=== PATIENT | male | born 1950 | race Caucasian/White ===

== ENCOUNTER 2017-03-25 12:00 | Day surgery (SDC) | payer MEDICARE ==
[2017-01-28 14:25] VITALS: BMI 29.7
[2017-03-25] MEDS ORDERED: DEXAMETHASONE SOD PHOSPHATE/PF 10 MG/ML SDV ONE (14:41)
[2017-03-25] MEDS ORDERED: BUPIVACAINE HCL/PF (5 MG/ML) 30 ML VIAL IJ ONE (14:41)
[2017-03-25] MEDS ORDERED: MIDAZOLAM HCL 2 MG/2 ML SINGLE DOSE VIAL ONE (14:41)
[2017-03-25] MEDS ORDERED: SUCCINYLCHOLINE CHLORIDE 200 MG/10 ML VIAL ONE (14:53)
[2017-03-25] MEDS ORDERED: PROPOFOL 20 ML ONE (14:53)
[2017-03-25] MEDS ORDERED: BUPIVACAINE HCL/PF 2.5 MG/ML - 30 ML VIAL IJ ONE (15:03)
--- NOTE | 2017-03-25 15:09 | HP ---
[facility] - Chief Complaint Chief Complaint: right ankle pain - Past Medical History Allergies/Adverse Reactions: Allergies Allergy/AdvReac Type Severity Reaction Status Date / Time No Known Drug Allergies Allergy Verified 01/28/17 14:16 - Current Medications Current Medications: Home Medications Medication Instructions Recorded Silodosin [Rapaflo] 4 mg PO HS 06/11/14 Esomeprazole Magnesium [Nexium 20 mg PO DAILY 01/28/17 24Hr] Ibuprofen 800 mg PO DAILY 01/28/17 Satellite Physical Exam - Physical Examination Vital Signs: Vital Signs Period Temp Pulse Resp BP Sys/Che Pulse Ox Last 24 Hr 98.4 F 60 18 120/76 95 Extremities: Other (+ henry sign, gap in achilles present) [facility] Impression/Plan - Impression/Plan Impression: right achilles tear Operative Procedure: right achilles repair Date to be Performed: 03/25/17
--- NOTE | 2017-03-25 15:11 | OP ---
Operative Note - Note: Operative Date: 03/25/17 Pre-Operative Diagnosis: right achilles tendon rupture Operation: right achilles tendon repair Post-Operative Diagnosis: Same as Pre-op Surgeon: Josep Gallardo Estimated Blood Loss (mls): 0 Operative Report Dictated: Yes
[2017-03-25] MEDS ORDERED: ceFAZolin SODIUM 1 GM VIAL ONE (15:36)
[2017-03-25] MEDS ORDERED: ONDANSETRON 4 MG/2 ML VIAL IVPUSH PRN (16:21)
[2017-03-25] MEDS ORDERED: oxyCODONE HCL 5 MG TABLET PO PRN ×2 (16:21→20:32)
[2017-03-25] MEDS ORDERED: LACTATED RINGERS SOLUTION 1,000 ML IV SCH (16:30)
[2017-03-25] MEDS ORDERED: TAMSULOSIN HCL 0.4 MG CAP.ER.24H (FP) PO SCH (22:00)
[2017-03-25 22:59] VITALS: PULSE 68
[2017-03-26 06:50] VITALS: BP 120/68; TEMP 98.4
[2017-03-26] MEDS ORDERED: PANTOPRAZOLE 20 MG TABLET (FP) PO SCH (10:00)
--- NOTE | 2017-03-29 11:08 | OP ---
DATE OF OPERATION: 03/25/2017 PREOPERATIVE DIAGNOSIS: Right Achilles tendon rupture. POSTOPERATIVE DIAGNOSIS: Right Achilles tendon rupture. PROCEDURE: Right Achilles tendon repair. SURGICAL ATTENDING: Josep Gallardo MD ANESTHESIA: Spinal and regional. CLOSURE: No. 2 FiberWire for Achilles, 2-0 Vicryl subcuticular, and quintin for skin. ESTIMATED BLOOD LOSS: Negligible. COMPLICATIONS: None. CONDITION: To Recovery in stable condition. DESCRIPTION OF OPERATIVE PROCEDURE: The patient was taken to the operating room on March 25, 2017. Regional and spinal anesthesia was administered by the anesthesiologist. IV Kefzol administered prophylactically prior to the case. Patient was placed in the prone position with all prominences well padded. The right lower extremity was prepped and draped in the usual sterile fashion. An 8-cm curved, longitudinal incision was centered over the gap, and the Achilles tendon was incised. Hemostasis was achieved with Bovie cautery. Sharp dissection was carried down full thickness to the rupture. The 2 ends were mobilized. A fasciotomy was made at the base to allow bleeding tissue to help facilitate healing postoperatively. Some of the scar tissue and primitive healing at the rupture site was debrided. Two No. 2 FiberWire sutures in a Krackow/baseball fashion were weaved in the distal stump, and then, two more were done in the proximal stump. The ankle was placed in a , and the 2 ends were sutured one to the other, achieving excellent end-to-end repair. The incision was then copiously irrigated. The subcutaneous was then closed using 2-0 Vicryl, quintin for the skin. A sterile pressure dressing was applied, followed by an splint. The patient was awakened from anesthesia and transferred to Recovery in stable condition. No complications. Estimated blood loss: Negligible. Heath [id number]
== END 2017-03-26 09:30 | disposition home or self-care (01) ==
LOC: FASU 12:00 → FM/S 19:55 → FASU 03-26 09:30
PROVIDERS: ATTEND Orthopaedic Surgery
PROC: 0LQN0ZZ Repair Right Lower Leg Tendon, Open Approach (ICD-10-PCS; principal; 2017-03-25 15:43)
DX: S86.011A Strain of right Achilles tendon, initial encounter (principal); X58.XXXA Exposure to other specified factors, initial encounter; Y93.89 Activity, other specified; Y92.89 Other specified places as the place of occurrence of the external cause

== ENCOUNTER 2018-08-03 01:14 | Emergency (ER) | payer OTHER ==
[2018-08-03 01:54] VITALS: TEMP 98.1; BMI 24.4
[2018-08-03] MEDS ORDERED: SODIUM CHLORIDE 1,000 ML IV STA (02:23)
--- NOTE | 2018-08-03 02:25 | PDOC ---
Attending Attestation - Resident Resident Name: Jigar Alvarez - ED Attending Attestation I have performed the following: I have examined & evaluated the patient, The case was reviewed & discussed with the resident, I agree w/resident's findings & plan - HPI HPI: 08/03/18 02:50 67-year-old male with left-sided chest pain, wheezing and cough - Physicial Exam PE: 08/03/18 02:50 GENERAL: Awake, in no acute distress HEAD: No signs of trauma EYES: ENT:clear without exudates. Moist mucosa NECK: Normal ROM, LUNGS:. Wheezing with prolonged expiratory phase and diminished air movement bilaterally HEART: Regular rate and rhythm, ABDOMEN: Soft, nondistended CHEST WALL: BACK: No midline tenderness. EXTREMITIES:. No erythema, or tenderness NEUROLOGICAL: Alert, SKIN: Warm, Dry - Medical Decision Making 08/03/18 02:51 67-year-old male with wheezing and left-sided chest pain Patient also endorses history of prostate cancer Plan for bronchodilators, steroids and CTA as well as cardiac enzymes Disposition pending reevaluation
--- NOTE | 2018-08-03 02:40 | PDOC ---
History of Present Illness - General Chief Complaint: Cold Symptoms Stated Complaint: COUGH/CHEST PAIN Time Seen by Provider: 08/03/18 02:18 History Source: Patient Exam Limitations: No Limitations - History of Present Illness Initial Comments: 67 yo M w a hx of prostate cancer 10 years ago presents to the ER with left sided chest pain since this morning. The patient states the pain is on the left side of his chest and rates the pain as 8/10. He describes the pain as a sharp needle and a squeezing pressure like sensations. The pain began this morning and has been constant since. The pain does not radiate up his neck, to his back , or to either of his arms. He denies associated nausea, vomiting, or diaphoresis. The patient states he has been coughing alot recently bc he was diagnosed with PNA by Dr. Bee who gave him amoxicillin and a penicillin injection. The patient states his chest pain is much worse when he coughs. He also states the pain is worse when he takes a deep breath. He denies recent travel, personal or family hx of blood clots, denies hormone usage, denies hemoptysis. PCP: Rashid Bee PSH: Achilles repair, Inguinal hernia surgery Social Hx: Denies using alcohol, cigarettes, or other substance usage. Allergies: NKA, NKDA Past History - Past Medical History Allergies/Adverse Reactions: Allergies Allergy/AdvReac Type Severity Reaction Status Date / Time No Known Drug Allergies Allergy Verified 08/03/18 01:54 Home Medications: Ambulatory Orders Silodosin [Rapaflo] 4 mg PO HS 06/11/14 Esomeprazole Magnesium [Nexium 24Hr] 20 mg PO DAILY 01/28/17 Ibuprofen 800 mg PO DAILY 01/28/17 Oxycodone HCl/Acetaminophen [Percocet 5-325 mg Tablet -] 1 - 2 tab PO Q6H #60 tab MDD 6 03/25/17 Anemia: No Asthma: No Cancer: Yes (PROSTATE CA 2007) Cardiac Disorders: No CVA: No COPD: No CHF: No Dementia: No Diabetes: No GI Disorders: Yes (REFLUX) Disorders: No HTN: No Hypercholesterolemia: No Liver Disease: No Seizures: No Thyroid Disease: No - Surgical History Abdominal Surgery: No Appendectomy: No Cardiac Surgery: No Cholecystectomy: No Lung Surgery: No Neurologic Surgery: No Orthopedic Surgery: Yes (RIGHT KNEE 2003, laminectomy?) - Suicide/Smoking/Psychosocial Hx Smoking History: Former smoker Have you smoked in the past 12 months: No Information on smoking cessation initiated: No Hx Alcohol Use: No Drug/Substance Use Hx: No Substance Use Type: None Hx Substance Use Treatment: No Review of Systems - Review of Systems Able to Perform ROS?: Yes Comments:: CONSTITUTIONAL: Absent: fever, no chills, no fatigue EYES: Absent: visual changes ENT: Absent: ear pain, no sore throat CARDIOVASCULAR: Present: Chest pain Absent: no palpitations RESPIRATORY: Present: cough, SOB GI: Absent: abdominal pain, no nausea, no vomiting, no constipation, no diarrhea GENITOURINARY: Absent: dysuria, no frequency, no hematuria MUSKULOSKELETAL: Absent: back pain, no arthralgia, no myalgia SKIN: Absent: rash NEURO: Absent: headache *Physical Exam - Vital Signs Last Vital Signs Temp Pulse Resp BP Pulse Ox 98.1 F 74 18 124/76 96 08/03/18 01:14 08/03/18 01:14 08/03/18 01:14 08/03/18 01:14 08/03/18 01:14 - Physical Exam Comments: GENERAL: Well-appearing, well-nourished. No apparent distress. HEENT: Normocephalic, atraumatic. PERRL, EOM intact. CARDIOVASCULAR: Normal S1, S2. Regular rate and rhythm. PULMONARY: b/l expiratory wheezing ABDOMEN: Soft, non-distended, non-tender. EXTREMITIES: Normal ROM in all four extremities. No gross deformities. SKIN: Warm, dry. No rash NEUROLOGICAL: No focal neurological deficits. ED Treatment Course - LABORATORY CBC & Chemistry Diagram: 08/03/18 02:43 08/03/18 02:43 - RADIOLOGY Radiology Studies Ordered: Category Date Time Status CHEST PA & LAT [RAD] Stat Radiology 08/03/18 02:23 Ordered Medical Decision Making - Medical Decision Making 67 yo M w a hx of prostate cancer 10 years ago presents to the ER with left sided chest pain since this morning. The patient states the pain is on the left side of his chest and rates the pain as 8/10. He describes the pain as a sharp needle and a squeezing pressure like sensations. The pain began this morning and has been constant since. The pain does not radiate up his neck, to his back , or to either of his arms. He denies associated nausea, vomiting, or diaphoresis. The patient states he has been coughing alot recently bc he was diagnosed with PNA by Dr. Bee who gave him amoxicillin and a penicillin injection. The patient states his chest pain is much worse when he coughs. He also states the pain is worse when he takes a deep breath. He denies recent travel, personal or family hx of blood clots, denies hormone usage, denies hemoptysis. Vital Signs Temp Pulse Resp BP Pulse Ox 98.1 F 74 18 124/76 96 08/03/18 01:14 08/03/18 01:14 08/03/18 01:14 08/03/18 01:14 08/03/18 01:14 DDx IBNLT: ACS/KS, Arrhythmia, angina, PNA, PE, COPD/asthma/reactive airway disease, bronchitis Plan: Labs, ekg, CTA pe, duonebs, steroids, IV hydration, analgesia, re-assess. Labs unremarkable. EKG ns no St elevations, depressions or t wave inversions. CTA: unremarkable. No acute chest pathology. No PE. Will send patient home with PCP fu - Will send a medrol dose pack *DC/Admit/Observation/Transfer Diagnosis at time of Disposition: Chest pain, Cough - Discharge Dispostion Disposition: HOME Condition at time of disposition: Improved Decision to Admit order: No - Referrals Referrals: Rashid Bee MD [Primary Care Provider] - - Patient Instructions Printed Discharge Instructions: DI for Chest Pain Additional Instructions: You came into the ER with chest pain. We looked at your labs and did an electrocardiogram which showed you are not having a heart attack. We also did a cat scan which showed you do not have ablood clot in your lungs or a lung infection. Take ibuprofen and tylenol as needed for chest discomfort. Please make sure to follow up with your primary care doctor in the next 3 to5 days to make sure you are being taken care of and your pain is getting better. Come back to the ER immediately if your pain worsens or you have any other new or worsening concerns. Thank you for coming to the [facility] ER. We hope you feel better soon! Print Language: GUYANESE - Post Discharge Activity
[2018-08-03] MEDS ORDERED: ALBUTEROL SO4 2.5/IPRATROPIUM 0.5 INH SOL 3 ML VIAL.NEB. NEB ONE ×2 (02:42→03:05)
[2018-08-03] MEDS ORDERED: methylPREDNISolone NA SUCC 125 MG/2 ML VIAL IVPUSH ONE (02:43)
[2018-08-03] MEDS ORDERED: IBUPROFEN 400 MG TABLET (FP) PO ONE ×2 (02:43→03:05)
[2018-08-03 03:05] LABS: INR 1.1 (0.83-1.09)
[2018-08-03] MEDS ORDERED: methylPREDNISolone NA SUCC 125 MG/2 ML VIAL ONE (03:05)
[2018-08-03 03:19] LABS: ALBUMIN 3.3 g/dl (3.4-5.0); BILIRUBIN,TOTAL 0.3 mg/dL (0.2-1); BLOOD UREA NITROGEN 23.2 mg/dL (7-18); CALCIUM 8.2 mg/dL (8.5-10.1); CREATININE 1.3 mg/dL (0.55-1.3); MAGNESIUM 2.2 mg/dL (1.8-2.4); N-TERMINAL BNP 60.2 pg/ml (5-125); TOT PROT 6.4 g/dl (6.4-8.2)
[2018-08-03 03:22] LABS: BASO % 0.2 % (0-2.0); EOS % 2.2 % (0-4.5); HEMATOCRIT 46.2 % (35.4-49); HEMOGLOBIN 15.3 GM/dL (11.7-16.9); LYMPH % 11.9 % (8-40); MCH 30.5 pg (25.7-33.7); MCHC 33.1 g/dl (32.0-35.9); MEAN CELL VOLUME 92.2 fl (80-96); MEAN PLT VOLUME 9.9 fl (7.5-11.1); MONO % 14.2 % (3.8-10.2); NEUT % 71.5 % (42.8-82.8); PLATELET COUNT 155 K/MM3 (134-434); RBC 5.01 M/mm3 (4.00-5.60); RDW 13.7 % (11.9-15.9); WHITE BLOOD COUNT 6.5 K/mm3 (4.0-10.0)
[2018-08-03] MEDS ORDERED: guaiFENesin/CODEINE 5 ML UNIT-DOSE CUPS PO ONE ×2 (05:16)
[2018-08-03 05:40] VITALS: BP 131/79; PULSE 83
--- NOTE | 2018-08-03 13:38 | EKG ---
Test Reason : Blood Pressure : / mmHG Vent. Rate : 059 BPM Atrial Rate : 059 BPM P-R Int : 172 ms QRS Dur : 098 ms QT Int : 414 ms P-R-T Axes : 055 -28 029 degrees QTc Int : 409 ms SINUS BRADYCARDIA WITH PREMATURE ATRIAL COMPLEXES OTHERWISE NORMAL ECG NO PREVIOUS ECGS AVAILABLE Confirmed by ARIK HADDAD, YULY ([id number]) on 08/03/2018 1:38:24 PM Referred By: ERIC Confirmed By:YULY ELISE MD
== END 2018-08-03 05:39 | disposition home or self-care (01) ==
LOC: JER 01:14
PROC: 3E0F7GC Introduction of Other Therapeutic Substance into Respiratory Tract, Via Natural or Artificial Opening (ICD-10-PCS; principal; 2018-08-03)
PROC: 3E0337Z Introduction of Electrolytic and Water Balance Substance into Peripheral Vein, Percutaneous Approach (ICD-10-PCS; 2018-08-03)
PROC: 3E0333Z Introduction of Anti-inflammatory into Peripheral Vein, Percutaneous Approach (ICD-10-PCS; 2018-08-03)
DX: R07.9 Chest pain, unspecified (principal); K21.9 Gastro-esophageal reflux disease without esophagitis; Z85.46 Personal history of malignant neoplasm of prostate
CPT/HCPCS: 36415; 71275-TC; 80053; 83735; 83880; 84484; 85025; 85379; 85610; 93005; 93010; 99283-25; J7030

== ENCOUNTER → 2019-01-19 | Day surgery (SDC) | payer OTHER ==
[2019-01-18 16:03] VITALS: BMI 30.7
[~2019-01-19] MED LIST: DEXAMETHASONE SOD PHOSPHATE 4 MG/1 ML VIAL ONE; MIDAZOLAM HCL 2 MG/2 ML SINGLE DOSE VIAL ONE; PROPOFOL 20 ML ONE
[2019-01-19 10:52] VITALS: BP 129/90; PULSE 66; TEMP 98.3
== END | disposition home or self-care (01) ==
LOC: JASU-SURG 10:12
PROVIDERS: ATTEND Urology
DX: Z53.8 Procedure and treatment not carried out for other reasons (principal)

== ENCOUNTER 2020-07-13 07:52 | Emergency (ER) | payer OTHER ==
[2020-07-13 08:11] VITALS: BMI 29.0
[2020-07-13] MEDS ORDERED: ACETAMINOPHEN 325 MG TABLET (FP) PO ONE (09:36)
[2020-07-13 09:49] LABS: BASO % 0.2 % (0-2.0); EOS % 0.8 % (0-4.5); HEMATOCRIT 45.3 % (35.4-49); HEMOGLOBIN 15.3 GM/dL (11.7-16.9); LYMPH % 11.9 % (8-40); MCH 30.8 pg (25.7-33.7); MCHC 33.8 g/dl (32.0-35.9); MEAN CELL VOLUME 91.2 fl (80-96); MEAN PLT VOLUME 9.3 fl (7.5-11.1); MONO % 7.5 % (3.8-10.2); NEUT % 79.6 % (42.8-82.8); PLATELET COUNT 179 K/MM3 (134-434); RBC 4.97 M/mm3 (4.00-5.60); RDW 14.2 % (11.9-15.9); WHITE BLOOD COUNT 10.3 K/mm3 (4.0-10.0)
[2020-07-13 09:50] LABS: EPI CELLS 3 /uL (0-25.1); HYALINE CASTS 3 /uL (0-3.1); URINE APPEARANCE TURBID; URINE BACTERIA 6137 /uL (0-1359); URINE BILIRUBIN NEGATIVE (NEGATIVE); URINE COLOR DK YELLOW; URINE GLUCOSE (UA) NEGATIVE (NEGATIVE); URINE KETONE NEGATIVE (NEGATIVE); URINE LEUK ESTERASE 3+ (NEGATIVE); URINE NITRITE POSITIVE (NEGATIVE); URINE PROTEIN 2+ (NEGATIVE); URINE RBC 520 /uL (0-23.9); URINE WBC 4871 /uL (0-25.8)
[2020-07-13 10:14] LABS: ALBUMIN 3.3 g/dl (3.4-5.0); BLOOD UREA NITROGEN 15.3 mg/dL (7-18); CALCIUM 8.5 mg/dL (8.5-10.1)
[2020-07-13 10:17] LABS: CREATININE 1.1 mg/dL (0.55-1.3)
[2020-07-13] MEDS ORDERED: ACETAMINOPHEN 325 MG TABLET (FP) ONE ×2 (10:17→10:18)
[2020-07-13 10:19] LABS: BILIRUBIN,TOTAL 1.2 mg/dL (0.2-1); TOT PROT 6.2 g/dl (6.4-8.2)
[2020-07-13 11:13] VITALS: BP 122/86; PULSE 53
== END 2020-07-13 11:13 | disposition home or self-care (01) ==
LOC: JER 07:52
DX: N39.0 Urinary tract infection, site not specified (principal)
CPT/HCPCS: 36415; 80053; 81003; 85025; 87086; 87186; 99284-25

== ENCOUNTER 2023-06-21 04:16 | Day surgery (SDC) | payer OTHER ==
[2023-06-16 16:18] VITALS: BMI 26.7
[2023-06-21] MEDS ORDERED: LIDOCAINE HCL/PF 1% SDV 5ML VIAL ONE (07:25)
[2023-06-21] MEDS ORDERED: DEXAMETHASONE SOD PHOSPHATE 10 MG/1 ML VIAL ONE (07:26)
[2023-06-21 07:50] VITALS: RESP 18
[2023-06-21] MEDS: DEXAMETHASONE SOD PHOSPHATE 10 MG/1 ML VIAL IVPUSH ONE (09:30)
[2023-06-21] MEDS: LIDOCAINE HCL 1% PRESERVATIVE FREE - 30ML VIAL IJ ONE (09:30)
[2023-06-21] MEDS: IOHEXOL 180 MG/1 ML ML IJ ONE (09:32)
[2023-06-21 10:04] VITALS: BP 130/70; PULSE 56; TEMP 98
[2023-06-21] MEDS ORDERED: ACETAMINOPHEN 500 MG TABLET (FP) PO PRN (10:25)
== END 2023-06-21 10:05 | disposition home or self-care (01) ==
LOC: JASU-SURG 04:16
PROVIDERS: ATTEND Pain Medicine Pain Medicine
PROC: 3E0R3BZ Introduction of Anesthetic Agent into Spinal Canal, Percutaneous Approach (ICD-10-PCS; 2023-06-21)
PROC: 3E0R33Z Introduction of Anti-inflammatory into Spinal Canal, Percutaneous Approach (ICD-10-PCS; principal; 2023-06-21 08:45)
DX: M54.16 Radiculopathy, lumbar region (principal)
CPT/HCPCS: 76000-TC-FY; J1100

== ENCOUNTER 2024-01-25 21:15 | Emergency (ER) | payer OTHER ==
[2024-01-25 21:28] VITALS: RESP 18; BMI 27.8
[2024-01-25] MEDS ORDERED: METHOCARBAMOL 500 MG TABLET ONE (23:00)
[2024-01-25] MEDS ORDERED: LIDOCAINE 4% PATCH TP ONE (23:00)
[2024-01-25] MEDS ORDERED: KETOROLAC TROMETHAMINE 30 MG/1 ML VIAL ONE (23:00)
[2024-01-25] MEDS: LIDOCAINE PATCH REMOVAL MC SCH (23:15)
[2024-01-25] MEDS: LIDOCAINE 4% PATCH TP ONE (23:15)
[2024-01-25] MEDS: KETOROLAC TROMETHAMINE 30 MG/1 ML VIAL IM ONE (23:15)
[2024-01-25] MEDS: METHOCARBAMOL 750 MG TABLET PO ONE (23:27)
[2024-01-25 23:32] LABS: POTASSIUM 4.7 mmol/L (3.5-5.1)
[2024-01-25 23:34] LABS: CALCIUM 8.9 mg/dL (8.5-10.1)
[2024-01-25 23:35] LABS: ALBUMIN 3.4 g/dl (3.4-5.0); BLOOD UREA NITROGEN 34.7 mg/dL (7-18)
[2024-01-25 23:37] LABS: BASO % 0.3 % (0-2.0); EOS % 0.4 % (0-4.5); HEMATOCRIT 42.6 % (35.4-49); HEMOGLOBIN 13.8 GM/dL (11.7-16.9); LYMPH % 11.5 % (8-40); MCH 30.2 pg (25.7-33.7); MCHC 32.4 g/dl (32.0-35.9); MEAN CELL VOLUME 93.3 fl (80-96); MEAN PLT VOLUME 9.1 fl (7.5-11.1); NEUT % 81.8 % (42.8-82.8); PLATELET COUNT 189 10^3/uL (134-434); RBC 4.57 M/mm3 (4.00-5.60); RDW 13.9 % (11.9-15.9); WHITE BLOOD COUNT 11.7 K/mm3 (4.0-10.0)
[2024-01-25 23:38] LABS: CREATININE 1.3 mg/dL (0.55-1.3)
[2024-01-25 23:39] LABS: BILIRUBIN,TOTAL 0.3 mg/dL (0.2-1); TOT PROT 6.2 g/dl (6.4-8.2)
[2024-01-26 00:32] LABS: HIV INTERPRETATION NEGATIVE (NEGATIVE)
[2024-01-26] MEDS ORDERED: ACETAMINOPHEN 1000 MG/100 ML BAG IVPB ONE (00:32)
[2024-01-26] MEDS ORDERED: ACETAMINOPHEN INJECTION 100 ML ONE (00:34)
[2024-01-26 00:47] LABS: PH,URINE 6.5 (5.0-8.0); URINE APPEARANCE CLEAR; URINE BILIRUBIN NEGATIVE (NEGATIVE); URINE COLOR YELLOW; URINE GLUCOSE (UA) NEGATIVE (NEGATIVE); URINE KETONE TRACE (NEGATIVE); URINE LEUK ESTERASE NEGATIVE (NEGATIVE); URINE NITRITE NEGATIVE (NEGATIVE); URINE PROTEIN NEGATIVE (NEGATIVE); URINE UROBILINOGEN 0.2 mg/dL (0.2-1.0)
[2024-01-26 02:33] VITALS: BP 128/70; PULSE 60; TEMP 98.6
[2024-01-26] MEDS ORDERED: METHOCARBAMOL 750 MG TABLET PO ONE (22:50)
== END 2024-01-26 02:33 | disposition home or self-care (01) ==
LOC: JER 21:15
PROC: 3E0133Z Introduction of Anti-inflammatory into Subcutaneous Tissue, Percutaneous Approach (ICD-10-PCS; principal; 2024-01-25)
DX: M54.50 Low back pain, unspecified (principal); G89.29 Other chronic pain
CPT/HCPCS: 36415; 72132-TC; 80053; 81003; 85025; 86803; 87389; 99285-25

== ENCOUNTER 2024-09-24 06:10 | Day surgery (SDC) | payer OTHER ==
[2024-09-19 14:50] VITALS: BMI 28.1
[2024-09-24 09:31] LABS: ABSOLUTE IMMATURE GRANULOCYTES 0.08 x10^3/uL (0.0-0.031); BASOPHILS # 0.03 x10^3/uL (0.01-0.08); EOSINOPHIL % 0.9 % (0.8-7.0); EOSINOPHILS # 0.07 x10^3/uL (0.04-0.54); MCHC 31.9 g/dl (32.3-36.5); MEAN CELL VOLUME 92.1 fl (79.0-92.2); MEAN PLT VOLUME 10.7 fl (9.4-12.4); MONOCYTE # 0.59 x10^3/uL (0.30-0.82); MONOCYTE % 7.7 % (5.3-12.2); RDW 13.2 % (12.2-16.6)
[2024-09-24 09:39] LABS: INR 1.08 (0.83-1.09); PROTHROMBIN TIME (PATIENT) 11.9 SEC (9.7-13.0)
[2024-09-24] MEDS ORDERED: MIDAZOLAM HCL 2 MG/2 ML SINGLE DOSE VIAL ONE (11:43)
[2024-09-24] MEDS ORDERED: FENTANYL CITRATE/PF 50 MCG/ML VIAL ONE (11:44)
[2024-09-24] MEDS: SODIUM CHLORIDE 500 ML IV ONE (11:55)
[2024-09-24] MEDS: FENTANYL CITRATE/PF 50 MCG/ML VIAL IVPUSH ONE (12:17)
[2024-09-24 15:33] VITALS: TEMP 97.3
[2024-09-24 15:46] VITALS: BP 151/92; PULSE 56; RESP 20
== END 2024-09-24 15:26 | disposition home or self-care (01) ==
LOC: JRADIR 06:10
PROVIDERS: ATTEND Urology
PROC: 0TJ53ZZ Inspection of Kidney, Percutaneous Approach (ICD-10-PCS; principal; 2024-09-24)
DX: N28.1 Cyst of kidney, acquired (principal)
CPT/HCPCS: 36415; 50390; 85025; 85610; 87070; 87075; 87102; 87116; 87205; 87206; 87210; 88108; 88172; 88173; 88305-TC